=== PATIENT | female | born 2000 | race Caucasian/White ===

== ENCOUNTER 2022-07-27 16:24 | Emergency (ER) | payer MEDICAID ==
[~2022-07-27] VITALS: Ht 167.6 cm; Wt 77.3 kg
[~2022-07-27 16:24] MED LIST: ALBUTEROL; LORATADINE
[2022-07-27 18:30] VITALS: BP 131/85
[2022-07-27] MEDS ORDERED: IBUPROFEN 600MG TABLET PO ONE (18:30)
[2022-07-27] MEDS ORDERED: IBUP-2029 MT (18:31)
== END 2022-07-27 18:43 | disposition home or self-care (01) ==
LOC: ER 16:24
DX: B34.9 Viral infection, unspecified (principal); R51.9 Headache, unspecified; J45.909 Unspecified asthma, uncomplicated; Z86.59 Personal history of other mental and behavioral disorders
CPT/HCPCS: 81025; 99282